=== PATIENT | male | born 1975 | race Caucasian/White ===

== ENCOUNTER 2016-10-06 17:18 | Emergency (ER) | payer MEDICARE, MEDICAID ==
[~2016-10-06] VITALS: Ht 175.3 cm; Wt 63.8 kg
[~2016-10-06 17:18] MED LIST: BUPR-197 PO; DICL75 PO; METH750T2 PO; ZYPR20TA PO
[2016-10-06 17:25] VITALS: BP 116/73; PULSE 70; RESP 16; TEMP 98.2; O2SAT 97
[2016-10-06] MEDS ORDERED: PERC10TA27 PO (17:36)
[2016-10-06] MEDS ORDERED: GABA100C4 PO (17:36)
[2016-10-06] MEDS ORDERED: SERO100T PO (17:36)
[2016-10-06] MEDS ORDERED: IBUP400T20 PO (17:36)
[2016-10-06] MEDS ORDERED: BUPR100CR PO (17:36)
[2016-10-06] MEDS ORDERED: LIDOCAINE HCL 1% 50 ML VIAL INFIL ONE (18:00)
[2016-10-06] MEDS ORDERED: BUPIVACAINE HCL PF 0.5% 10 ML VIAL INFIL ONE (18:00)
--- NOTE | 2016-10-06 18:21 | RADHPO ---
EXAM DATE/TIME: 10/06/2016 18:03 [place] COMPARISON: No previous studies available for comparison. INDICATIONS : Patient states a cinder block fell on his left hand, fifth digit. MEDICAL HISTORY : None. SURGICAL HISTORY : None. ENCOUNTER: Initial ACUITY: 1 day PAIN SCORE: 7/10 LOCATION: Left fifth digit. FINDINGS: There is a laceration to the tip of the fifth digit with soft tissue emphysema dorsally at the level of the nailbed. No fractures are seen. CONCLUSION: No fractures. Soft tissue injury. Deon Ordonez MD on October 06, 2016 at 18:19 Board Certified Radiologist. This report was verified electronically.
--- NOTE | 2016-10-06 18:28 | PD ---
HPI Chief Complaint: Injury Time Seen by Provider: 18:00 Travel History International Travel<30 days: No Contact w/Intl Traveler<30days: No Traveled to known affect area: No History of Present Illness HPI 32-year-old male presents to the emergency room for evaluation of left fifth finger pain and swelling after dropping a concrete cinder block on his finger just prior to arrival. Patient states this cinder block fell less than 1 foot before landing on his finger. Reports immediate pain and bleeding. He applied a dressing and continue to work. States as soon as he was able, he came to the emergency room. Patient states his last tetanus was less than 5 years ago. PFSH Past Medical History ADHD: Yes Bipolar Disorder: Yes Anxiety: Yes Depression: Yes Diminished Hearing: No Immunizations Current: No Seizures: Yes Tetanus Vaccination: < 5 Years Influenza Vaccination: No Social History Alcohol Use: Yes (SOCIAL) Tobacco Use: Yes (1 ppd) Substance Use: Yes (MARAJUANA WEEKLY) Allergies-Medications (Allergen,Severity, Reaction): Coded Allergies: No Known Allergies (Unverified , 10/06/16) Reported Meds & Prescriptions Reported Meds & Active Scripts Active Reported Gabapentin 100 Mg Cap 100 Mg PO HS Seroquel (Quetiapine Fumarate) 100 Mg Tab 100 Mg PO HS Ibuprofen 400 Mg Tab 400 Mg PO Q4H PRN Percocet (Oxycodone-Acetaminophen) 10-325 mg Tab 1 Tab PO Q6H PRN Wellbutrin SR 12 HR (Bupropion HCl) 100 Mg Tab 100 Mg PO Q12HR Review of Systems Except as stated in HPI: all other systems reviewed are Neg Physical Exam Narrative GENERAL: Well-nourished, well-developed male in no acute distress. Afebrile. Ambulatory. SKIN: Warm and dry. Left fifth fingernail has been partially removed at the cuticle. No other lacerations. Less than 2 second capillary refill distally. Distal sensation intact. HEAD: Normocephalic. EYES: No scleral icterus. No injection or drainage. NECK: Supple, trachea midline. No JVD or lymphadenopathy. Data Data Last Documented VS Vital Signs Date Time Temp Pulse Resp B/P Pulse Ox O2 Delivery O2 Flow Rate FiO2 10/06/16 17:25 98.2 70 16 116/73 97 Orders Bupivacaine Pf 0.5% Inj (Marcaine Pf 0.5 (10/06/16 18:00) Lidocaine 1% Inj (50 Ml) (Xylocaine 1% I (10/06/16 18:00) Finger (Lbf2yyr) (10/06/16 ) MDM Medical Decision Making Medical Screen Exam Complete: Yes Emergency Medical Condition: Yes Medical Record Reviewed: Yes Differential Diagnosis Fracture versus abrasion versus avulsion versus laceration Narrative Course 40-year-old male presents to the emergency room for evaluation of left fifth finger pain after dropping a concrete cinder block on his finger just prior to arrival. Physical exam reveals an avulsed nail. Hemostasis controlled. Less than 2 second capillary refill distally and distal sensation intact. X-ray shows no acute bony injury. Fingernail was fully removed and nail bed was cleansed. There is a small laceration in the nail bed that was repaired, see procedure note for details. Patient was discharged with wound care instructions and told to follow up with a hand surgeon or return for worsening symptoms. He understands and agrees to this plan. Procedures Procedure Narrative LACERATION LOCATION: Left fifth nailbed LENGTH: 0.5 cm NUMBER OF STITCHES/STEPHANIE: 2 buried simple interrupted REPAIR: Digital block was performed using 0.5% bupivacaine and 1% lidocaine. The fingernail was removed the rest of the way from the nailbed. The area of the laceration was prepped with Betadine, irrigated, and sterilely draped. The wound was explored without evidence of foreign body, tendon injury or neurovascular injury. The wound was closed using 5-0 Vicryl. This was a single layer repair. The nail was thoroughly cleansed and replaced, secured with glue. A sterile dressing was applied. The patient was advised to keep the dressing clean and dry. Patient tolerated the procedure well. Diagnosis Primary Impression: Nail avulsion, finger Qualified Code: S61.309A - Nail avulsion, finger, initial encounter Referrals: Hand Surgeon Patient Instructions: General Instructions, Nail Avulsion (ED) Additional Instructions: Rest and drink plenty of fluids. Keep finger clean and dry. Apply triple antibiotic ointment as needed. Take prescribed pain medications as directed, as needed for pain. Follow-up with a hand surgeon. Return to the emergency room for worsening symptoms. Disposition: 01 DISCHARGE HOME Condition: Stable Lorene Ventura Oct 06, 2016 18:28
== END 2016-10-06 19:25 | disposition home or self-care (01) ==
LOC: PHEFT 17:18
DX: S61.307A Unspecified open wound of left little finger with damage to nail, initial encounter (principal); W23.0XXA Caught, crushed, jammed, or pinched between moving objects, initial encounter; Y93.9 Activity, unspecified; Y92.9 Unspecified place or not applicable; Y99.9 Unspecified external cause status
CPT/HCPCS: 11760; 73140